=== PATIENT | male | born 2000 | race African-American/Black ===

== ENCOUNTER 2021-02-04 00:11 | Emergency (ER) | payer MEDICAID, OTHER ==
[~2021-02-04] VITALS: Ht 188 cm; Wt 113.4 kg
[2021-02-04 01:38] LABS: Basophils # (auto) 0.1 10 ^3/uL (0-0.2); Basophils % (auto) 0.8 % (0.0-2.0); Eosinophils # (auto) 0.2 10 ^3/uL (0-0.8); Eosinophils % (auto) 2.1 % (0.0-7.0); Hematocrit 44.1 % (41.0-53.0); Lymphocytes # (auto) 1.4 10 ^3/uL (0.4-5.4); Lymphocytes % (auto) 14.9 % (10.0-50.0); Mean Corpuscular Hemoglobin 27.1 pg (28.0-32.0); Mean Corpuscular Volume 79.6 fL (80.0-100.0); Monocytes # (auto) 0.5 10 ^3/uL (0-1.3); Monocytes % (auto) 5.6 % (0.0-12.0); Neutrophils # (auto) 7.4 10 ^3/uL (1.6-8.6); Neutrophils % (auto) 76.6 % (37.0-80.0); Red Blood Cells 5.54 10^6/uL (4.5-5.90); White Blood Cell 9.6 10^3/uL (4.4-10.8)
[2021-02-04 01:49] LABS: Urine Bacteria FEW /hpf (None Seen); Urine Blood Negative /uL (Negative); Urine Mucus FEW (None Seen); Urine Specific Gravity 1.021 (1.001-1.035); Urine WBC 2 /hpf (0 - 3)
[2021-02-04 02:19] LABS: Albumin 3.9 g/dL (3.4-5.0); BUN/Creatinine Ratio 10.1; Potassium 4.1 mmol/L (3.5-5.1)
[2021-02-04 02:21] LABS: Bilirubin, Total 0.5 mg/dL (0.2-1.0); Total Protein 7.7 g/dL (6.4-8.2)
[2021-02-04 08:00] VITALS: BP 105/61
[2021-02-04] MEDS ORDERED: SODIUM CHLORIDE 0.9% 1,000 ML IV ONE (08:00)
[2021-02-04] MEDS ORDERED: SODIUM CHLORIDE 0.9% 500 ML IVB ONE (08:00)
[2021-02-04 08:15] LABS: Alcohol, Urine < 3.0 mg/dL (0-10); Amphetamine Screen, Urine NEGATIVE (NEGATIVE); Barbiturate Scree,Urine NEGATIVE (NEGATIVE); Benzodiazephine Screen, Urine NEGATIVE (NEGATIVE); Cannabinoid Screen, Urine POSITIVE (NEGATIVE); Cocaine Screen, Urine NEGATIVE (NEGATIVE); Phencyclidine Screen, Urine NEGATIVE (NEGATIVE)
[2021-02-04 08:22] LABS: Opiate Scree,Urine NEGATIVE (NEGATIVE)
== END 2021-02-04 10:08 | disposition home or self-care (01) ==
LOC: ER 00:11
DX: R53.1 Weakness (principal); R42 Dizziness and giddiness; F12.10 Cannabis abuse, uncomplicated
CPT/HCPCS: 36415; 70450; 71046; 80053; 80307; 81001; 83735; 84443; 85025; 85049; 93005; 96360; 99285; J7040

== ENCOUNTER 2021-05-11 14:46 | Emergency (ER) | payer MEDICAID, OTHER ==
[~2021-05-11] VITALS: Ht 188 cm; Wt 117.9 kg
[2021-05-11 17:15] VITALS: BP 118/74
[2021-05-11] MEDS ORDERED: IBUPROFEN 800 MG TAB PO ONE (17:30)
== END 2021-05-11 18:15 | disposition home or self-care (01) ==
LOC: ER 14:46
DX: S16.1XXA Strain of muscle, fascia and tendon at neck level, initial encounter (principal); V49.59XA Passenger injured in collision with other motor vehicles in traffic accident, initial encounter; Y93.89 Activity, other specified; Y92.488 Other paved roadways as the place of occurrence of the external cause; Y99.8 Other external cause status
CPT/HCPCS: 72040